=== PATIENT | female | born 2000 | race Two or more races ===

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

== ENCOUNTER 2021-11-07 04:33 | Emergency (ER) | payer OTHER ==
[~2021-11-07] VITALS: Ht 162.6 cm; Wt 55.8 kg
[~2021-11-07 04:33] MED LIST: IBUP-1955 PO
--- NOTE | 2021-11-07 04:49 | NUR ---
PT CALLED FOR TRIAGE, NOT IN WAITING ROOM
[2021-11-07 05:41] VITALS: BP 116/68
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
--- NOTE | 2021-11-07 05:42 | NUR ---
DR. NADER CARVAJAL AT PT'S BEDSIDE
[2021-11-07] MEDS ORDERED: TYL2T PO (05:50)
[2021-11-07] MEDS ORDERED: AMOX875T2 PO (05:50)
== END 2021-11-07 06:00 | disposition home or self-care (01) ==
LOC: ER 04:33
DX: H66.92 Otitis media, unspecified, left ear (principal); Z79.899 Other long term (current) drug therapy

== ENCOUNTER 2021-11-26 20:31 | Emergency (ER) | payer OTHER ==
[~2021-11-26] VITALS: Ht 154.9 cm; Wt 54.4 kg
[~2021-11-26 20:31] MED LIST changes: +AMOX875T2 PO; +TYL2T PO
[2021-11-26 21:23] VITALS: BP 105/63
[2021-11-26] MEDS ORDERED: AMOX-430 PO (21:35)
[2021-11-26] MEDS ORDERED: NEOM10DR11 EACH EAR (21:35)
--- NOTE | 2021-11-26 21:37 | NUR ---
Patient discharged to home in stable condition. Written and verbal after care instructions given. Patient verbalizes understanding of instruction. Pt ambulatory with a steady gait
--- NOTE | 2021-11-26 21:37 | NUR ---
Chapin tanner in [facility] - 11/26/21 at 2137 by LUIS DC
== END 2021-11-26 21:39 | disposition home or self-care (01) ==
LOC: ER 20:35
DX: H66.91 Otitis media, unspecified, right ear (principal); Z79.899 Other long term (current) drug therapy

== ENCOUNTER 2022-07-31 00:11 | Emergency (ER) | payer OTHER ==
[~2022-07-31] VITALS: Ht 162.6 cm; Wt 63.5 kg
[~2022-07-31 00:11] MED LIST changes: +AMOX-430 PO; +NEOM10DR11 EACH EAR
--- NOTE | 2022-07-31 00:20 | NUR ---
c/o chest pain 30 mins prior to arrival 02/15 ps. Patient is AAOX4. Able to make needs known. Placed comfortably in bed. Vitals checked.
--- NOTE | 2022-07-31 00:25 | NUR ---
BACK HANGER AT BEDSIDE
[2022-07-31 00:51] LABS: BASOPHILS % (AUTO) 0.6 % (0.0-2.0); EOSINOPHILS % (AUTO) 2.6 % (0.0-6.0); HEMATOCRIT 40 % (33-45); LYMPHOCYTES # (AUTO) 2.3 K/uL (0.8-4.8); LYMPHOCYTES % (AUTO) 35.6 % (20.0-44.0); MEAN CORPUSCULAR HGB CONC 33 g/dl (31.0-36.0); MEAN CORPUSCULAR VOLUME 92 fL (82-100); MONOCYTES # (AUTO) 0.5 K/uL (0.1-1.30); MONOCYTES % (AUTO) 7.8 % (2.0-12.0); NEUTROPHILS # (AUTO) 3.5 K/uL (1.8-8.9); NEUTROPHILS % (AUTO) 53.4 % (43.0-81.0); PLATELET COUNT (AUTO) 255 K/uL (150-450); RED BLOOD CELL COUNT(AUTO) 4.33 MIL/uL (4.0-5.2); WHITE BLOOD COUNT (AUTO) 6.5 K/uL (4.3-11.0)
[2022-07-31 00:59] LABS: CALCIUM, SERUM 9.1 mg/dL (8.5-10.1); CREATININE 0.8 mg/dL (0.6-1.3); POTASSIUM 3.9 mmol/L (3.5-5.1)
[2022-07-31 02:19] VITALS: BP 118/78
--- NOTE | 2022-07-31 02:19 | NUR ---
Patient discharged to home in stable condition. Written and verbal after care instructions given. Patient verbalizes understanding of instruction.
== END 2022-07-31 02:19 | disposition home or self-care (01) ==
LOC: ER 00:14
DX: R07.89 Other chest pain (principal); R06.00 Dyspnea, unspecified; Z79.899 Other long term (current) drug therapy
CPT/HCPCS: 36415; 71045-TC; 80048-TC; 84702-TC; 85025-TC

== ENCOUNTER 2024-11-18 15:45 | Emergency (ER) | payer OTHER ==
[~2024-11-18] VITALS: Ht 162.6 cm; Wt 59.0 kg
[2024-11-18 17:11] VITALS: BP 110/70; TEMP 98.6; O2SAT 98
== END 2024-11-18 17:12 | disposition home or self-care (01) ==
LOC: ER 15:55
DX: N64.4 Mastodynia (principal); Z79.899 Other long term (current) drug therapy